=== PATIENT | male | born 1950 | race Asian ===

== ENCOUNTER 2016-07-24 12:32 | Day surgery (SDC) | payer OTHER ==
[~2016-07-24] VITALS: Ht 170.2 cm; Wt 72.1 kg
[2016-07-24] MEDS ORDERED: ASPIRIN (13:32)
[2016-07-24] MEDS ORDERED: LISINOPRIL (13:32)
[2016-07-24] MEDS ORDERED: METOPROLOL (13:32)
[2016-07-24] MEDS ORDERED: NIACIN (13:32)
[2016-07-24 13:35] VITALS: Ht 170.2 cm; Wt 72.1 kg
[2016-07-24 14:10] VITALS: BP 164/84; PULSE 68; RESP 18
[2016-07-24] MEDS ORDERED: FENTAnyl 50 MCG/ML VIAL ONE (14:33)
[2016-07-24] MEDS ORDERED: MIDAZOLAM 1 MG/ML 2 ML INJ ONE ×2 (14:34)
[2016-07-24 15:05] VITALS: BP 110/65; PULSE 63; RESP 15
--- NOTE | 2016-07-24 17:15 | GILP ---
DATE OF PROCEDURE: 07/24/2016 NAME OF PROCEDURE: Colonoscopy. SURGEON: Jim Starks MD PREOPERATIVE DIAGNOSIS: Screening colonoscopy. POSTOPERATIVE DIAGNOSES: 1. Colonoscopy all the way to the anastomotic area. No colon neoplasm was identified. 2. Internal hemorrhoids. INDICATION FOR THE PROCEDURE: Mr. Rakesh Zavala is a 66-year-old male patient who had surgery for colon cancer several years ago. Patient was scheduled for screening colonoscopy. The procedure and possible complications were well explained to the patient. He understood and cons ented to the procedure. DESCRIPTION OF PROCEDURE: Under the influence of fentanyl and Versed, the colonoscope was carefully introduced in the rectum. Under the direct vision, it was advanced all the way to the anastomotic area. FINDINGS: The patient had internal hemorrhoids. No colon neoplasm was identified. He tolerated the procedure very well, and there was no complication from the procedure. At the end of the procedure, he was awake with stable vital signs, and he was discharged home to the care of hi s family. IMPRESSION: 1. Colonoscopy all the way to the anastomotic area. 2. No colon neoplasm was identified. 3. Internal hemorrhoids. PLAN: Next screening colonoscopy in 10 years. Dictated By: JIM DEJESUS/YANDEL Conf#: [id number] DID#: [id number]
== END 2016-07-24 15:36 | disposition home or self-care (01) ==
LOC: GIL 12:32
PROVIDERS: ATTEND Internal Medicine Gastroenterology
DX: Z12.11 Encounter for screening for malignant neoplasm of colon (principal); K64.8 Other hemorrhoids; I10 Essential (primary) hypertension; E78.5 Hyperlipidemia, unspecified; I25.10 Atherosclerotic heart disease of native coronary artery without angina pectoris
CPT/HCPCS: 45378; J2250; J3010